=== PATIENT | male | born 1970 | race African-American/Black ===

== ENCOUNTER 2021-09-03 14:15 | Inpatient (IN) | payer OTHER ==
[2021-09-03] MEDS ORDERED: ONDANSETRON *ODT* 4 MG TABLET SL PRN (15:12)
[2021-09-03] MEDS ORDERED: NICOTINE 10 MG CARTRIDGE (INHALER) IH PRN (15:12)
[2021-09-03] MEDS ORDERED: LOPERAMIDE HCL 2 MG CAPSULE PO PRN (15:12)
[2021-09-03] MEDS ORDERED: BISMUTH SUBSALICYLATE 524 MG/30 ML PO PRN (15:12)
[2021-09-03] MEDS ORDERED: MAGNESIUM HYDROX 2400MG/30ML ORAL SUSPENSION 30 ML CUP PO PRN (15:12)
[2021-09-03] MEDS ORDERED: IBUPROFEN 400 MG TABLET (FP) PO PRN (15:12)
[2021-09-03] MEDS ORDERED: ACETAMINOPHEN 325 MG TABLET (FP) PO PRN ×2 (15:12)
[2021-09-03] MEDS ORDERED: MENTHOL/PHENOL 1 EACH UD MM PRN (15:12)
[2021-09-03] MEDS ORDERED: MAG HYDROX/AL HYDROX/SIMETH 30 ML UNIT-DOSE CUP PO PRN (15:12)
[2021-09-03] MEDS ORDERED: MAGNESIUM CITRATE 300 ML BOTTLE PO PRN (15:12)
[2021-09-03 15:54] VITALS: BMI 32.5
[2021-09-03] MEDS: BACITRACIN 0.9 GM PACKET TP SCH (18:34)
[2021-09-03] MEDS: hydrOXYzine PAMOATE 25 MG CAPSULE (FP) PO SCH ×2 (18:34→22:39)
[2021-09-03] MEDS ORDERED: MELATONIN 5 MG TABLETS PO SCH (22:00)
[2021-09-03] MEDS ORDERED: THIAMINE HCL 100 MG TABLET (FP) PO SCH (22:00)
[2021-09-03] MEDS: METHOCARBAMOL 500 MG TABLET PO PRN (22:39)
[2021-09-04] MEDS: hydrOXYzine PAMOATE 25 MG CAPSULE (FP) PO SCH ×3 (05:49→14:27)
[2021-09-04] MEDS ORDERED: PRENATAL VITAMINS W/ FOLIC ACID TABLET (FP) PO SCH (10:00)
[2021-09-04] MEDS: BACITRACIN 0.9 GM PACKET TP SCH (10:48)
[2021-09-04] MEDS: METHOCARBAMOL 500 MG TABLET PO PRN (10:48)
[2021-09-04 13:06] VITALS: BP 119/70; PULSE 80; TEMP 98.1
== END 2021-09-04 15:15 | disposition other institution (70) | DRG 774 ==
LOC: YASAS 14:15 → UNDOADMIN 16:53 → Y6N 16:53
PROVIDERS: ADMIT Allergy & Immunology; ATTEND Allergy & Immunology
PROC: HZ2ZZZZ Detoxification Services for Substance Abuse Treatment (ICD-10-PCS; principal; 2021-09-03)
DX: F10.230 Alcohol dependence with withdrawal, uncomplicated (principal); F14.20 Cocaine dependence, uncomplicated; F17.210 Nicotine dependence, cigarettes, uncomplicated; M17.0 Bilateral primary osteoarthritis of knee; Z59.00 Homelessness unspecified
CPT/HCPCS: 93005; 93010; C9803; U0003; U0005

== ENCOUNTER 2021-09-04 15:03 | Inpatient (IN) | payer OTHER ==
[~2021-09-04 15:03] MED LIST: ACETAMINOPHEN 325 MG TABLET (FP) PO PRN; LOPERAMIDE HCL 2 MG CAPSULE PO PRN; MAG HYDROX/AL HYDROX/SIMETH 30 ML UNIT-DOSE CUP PO PRN; MAGNESIUM CITRATE 300 ML BOTTLE PO PRN; MAGNESIUM HYDROX 2400MG/30ML ORAL SUSPENSION 30 ML CUP PO PRN; NICOTINE 10 MG CARTRIDGE (INHALER) IH PRN; P-EPHED 60MG/TRIPROLIDI 2.5MG TABLET PO PRN; guaiFENesin 200 MG/10 ML 10 ML UNIT-DOSE CUPS PO PRN
[2021-09-04] MEDS: hydrOXYzine PAMOATE 25 MG CAPSULE (FP) PO SCH ×2 (20:57→21:20)
[2021-09-04 21:10] LABS: PH,URINE 7.5 (5.0-8.0); URINE APPEARANCE CLEAR; URINE BILIRUBIN NEGATIVE (NEGATIVE); URINE COLOR YELLOW; URINE GLUCOSE (UA) NEGATIVE (NEGATIVE); URINE KETONE NEGATIVE (NEGATIVE); URINE LEUK ESTERASE NEGATIVE (NEGATIVE); URINE NITRITE NEGATIVE (NEGATIVE); URINE PROTEIN NEGATIVE (NEGATIVE)
[2021-09-04] MEDS: THIAMINE HCL 100 MG TABLET (FP) PO SCH (21:20)
[2021-09-04] MEDS: BACITRACIN 0.9 GM PACKET TP SCH (21:20)
[2021-09-04] MEDS: MELATONIN 5 MG TABLETS PO SCH (21:20)
[2021-09-05] MEDS: hydrOXYzine PAMOATE 25 MG CAPSULE (FP) PO SCH ×5 (06:46→21:05)
[2021-09-05] MEDS: PRENATAL VITAMINS W/ FOLIC ACID TABLET (FP) PO SCH (10:14)
[2021-09-05] MEDS: BACITRACIN 0.9 GM PACKET TP SCH ×2 (10:15→21:05)
[2021-09-05] MEDS: NICOTINE 7 MG/24 HOURS TOPICAL PATCH TD SCH (10:15)
[2021-09-05 11:59] LABS: HEMATOCRIT 43.4 % (35.4-49); HEMOGLOBIN 13.4 GM/dL (11.7-16.9); MCH 21.2 pg (25.7-33.7); MCHC 30.9 g/dl (32.0-35.9); MEAN CELL VOLUME 68.7 fl (80-96); MEAN PLT VOLUME 9.5 fl (7.5-11.1); PLATELET COUNT 325 10^3/uL (134-434); RBC 6.31 M/mm3 (4.00-5.60); RDW 16.8 % (11.9-15.9); WHITE BLOOD COUNT 6.4 K/mm3 (4.0-10.0)
[2021-09-05 12:15] LABS: CALCIUM 8.7 mg/dL (8.5-10.1)
[2021-09-05 12:16] LABS: BLOOD UREA NITROGEN 10.1 mg/dL (7-18)
[2021-09-05 12:17] LABS: CREATININE 1.1 mg/dL (0.55-1.3)
[2021-09-05 12:19] LABS: BILIRUBIN,TOTAL 0.3 mg/dL (0.2-1)
[2021-09-05 12:22] LABS: TOT PROT 6.2 g/dl (6.4-8.2)
[2021-09-05] MEDS: THIAMINE HCL 100 MG TABLET (FP) PO SCH (21:05)
[2021-09-05] MEDS: MELATONIN 5 MG TABLETS PO SCH (21:05)
[2021-09-05] MEDS: IBUPROFEN 400 MG TABLET (FP) PO PRN (21:06)
[2021-09-06] MEDS: hydrOXYzine PAMOATE 25 MG CAPSULE (FP) PO SCH ×5 (06:43→22:01)
[2021-09-06] MEDS: BACITRACIN 0.9 GM PACKET TP SCH ×2 (10:17→21:59)
[2021-09-06] MEDS: PRENATAL VITAMINS W/ FOLIC ACID TABLET (FP) PO SCH (10:17)
[2021-09-06] MEDS: NICOTINE 7 MG/24 HOURS TOPICAL PATCH TD SCH (10:17)
[2021-09-06] MEDS: MELATONIN 5 MG TABLETS PO SCH (22:00)
[2021-09-06] MEDS: IBUPROFEN 400 MG TABLET (FP) PO PRN (22:01)
[2021-09-06] MEDS: THIAMINE HCL 100 MG TABLET (FP) PO SCH (22:01)
[2021-09-07] MEDS: hydrOXYzine PAMOATE 25 MG CAPSULE (FP) PO SCH ×5 (06:30→21:19)
[2021-09-07] MEDS: PRENATAL VITAMINS W/ FOLIC ACID TABLET (FP) PO SCH (09:45)
[2021-09-07] MEDS: BACITRACIN 0.9 GM PACKET TP SCH ×2 (09:45→21:19)
[2021-09-07] MEDS: NICOTINE 7 MG/24 HOURS TOPICAL PATCH TD SCH (09:46)
[2021-09-07] MEDS: MELATONIN 5 MG TABLETS PO SCH (21:19)
[2021-09-07] MEDS: THIAMINE HCL 100 MG TABLET (FP) PO SCH (21:19)
[2021-09-08] MEDS: hydrOXYzine PAMOATE 25 MG CAPSULE (FP) PO SCH ×5 (06:21→21:49)
[2021-09-08] MEDS: BACITRACIN 0.9 GM PACKET TP SCH ×2 (10:08→21:49)
[2021-09-08] MEDS: PRENATAL VITAMINS W/ FOLIC ACID TABLET (FP) PO SCH (10:08)
[2021-09-08] MEDS: NICOTINE 7 MG/24 HOURS TOPICAL PATCH TD SCH (10:08)
[2021-09-08] MEDS: MELATONIN 5 MG TABLETS PO SCH (21:49)
[2021-09-08] MEDS: IBUPROFEN 400 MG TABLET (FP) PO PRN (21:49)
[2021-09-08] MEDS: THIAMINE HCL 100 MG TABLET (FP) PO SCH (21:49)
[2021-09-09] MEDS: hydrOXYzine PAMOATE 25 MG CAPSULE (FP) PO SCH ×5 (06:25→21:12)
[2021-09-09] MEDS: BACITRACIN 0.9 GM PACKET TP SCH ×2 (10:37→21:12)
[2021-09-09] MEDS: PRENATAL VITAMINS W/ FOLIC ACID TABLET (FP) PO SCH (10:37)
[2021-09-09] MEDS: NICOTINE 7 MG/24 HOURS TOPICAL PATCH TD SCH (10:37)
[2021-09-09] MEDS: THIAMINE HCL 100 MG TABLET (FP) PO SCH (21:12)
[2021-09-09] MEDS: MELATONIN 5 MG TABLETS PO SCH (21:12)
[2021-09-09] MEDS: IBUPROFEN 400 MG TABLET (FP) PO PRN (21:13)
[2021-09-10] MEDS: hydrOXYzine PAMOATE 25 MG CAPSULE (FP) PO SCH ×2 (06:44→09:48)
[2021-09-10] MEDS: BACITRACIN 0.9 GM PACKET TP SCH ×2 (09:48→21:26)
[2021-09-10] MEDS: PRENATAL VITAMINS W/ FOLIC ACID TABLET (FP) PO SCH (09:48)
[2021-09-10] MEDS: NICOTINE 7 MG/24 HOURS TOPICAL PATCH TD SCH (09:48)
[2021-09-10] MEDS: IBUPROFEN 400 MG TABLET (FP) PO PRN (10:42)
[2021-09-10] MEDS ORDERED: hydrOXYzine PAMOATE 25 MG CAPSULE (FP) PO PRN (11:30)
[2021-09-10] MEDS: MELATONIN 5 MG TABLETS PO SCH (21:26)
[2021-09-10] MEDS: THIAMINE HCL 100 MG TABLET (FP) PO SCH (21:26)
[2021-09-11] MEDS: BACITRACIN 0.9 GM PACKET TP SCH ×2 (10:08→22:06)
[2021-09-11] MEDS: NICOTINE 7 MG/24 HOURS TOPICAL PATCH TD SCH (10:08)
[2021-09-11] MEDS: PRENATAL VITAMINS W/ FOLIC ACID TABLET (FP) PO SCH (10:08)
[2021-09-11 14:08] LABS: SARS-CoV-2 NAA Not Detected (Not Detected)
[2021-09-11] MEDS: MELATONIN 5 MG TABLETS PO SCH (22:07)
[2021-09-11] MEDS: THIAMINE HCL 100 MG TABLET (FP) PO SCH (22:07)
[2021-09-11] MEDS: IBUPROFEN 400 MG TABLET (FP) PO PRN (22:23)
[2021-09-12] MEDS: BACITRACIN 0.9 GM PACKET TP SCH ×2 (10:16→21:13)
[2021-09-12] MEDS: PRENATAL VITAMINS W/ FOLIC ACID TABLET (FP) PO SCH (10:16)
[2021-09-12] MEDS: NICOTINE 7 MG/24 HOURS TOPICAL PATCH TD SCH (10:17)
[2021-09-12] MEDS: IBUPROFEN 400 MG TABLET (FP) PO PRN ×2 (10:18→21:15)
[2021-09-12] MEDS: MINERAL OIL/PETROLAT/WATER TOPICAL CREAM 113 GM JAR TP SCH ×2 (10:53→21:14)
[2021-09-12] MEDS: THIAMINE HCL 100 MG TABLET (FP) PO SCH (21:13)
[2021-09-12] MEDS: MELATONIN 5 MG TABLETS PO SCH (21:13)
[2021-09-13] MEDS: IBUPROFEN 400 MG TABLET (FP) PO PRN (05:56)
[2021-09-13] MEDS: PRENATAL VITAMINS W/ FOLIC ACID TABLET (FP) PO SCH (10:31)
[2021-09-13] MEDS: BACITRACIN 0.9 GM PACKET TP SCH ×2 (10:48→21:40)
[2021-09-13] MEDS: NICOTINE 7 MG/24 HOURS TOPICAL PATCH TD SCH (10:49)
[2021-09-13] MEDS: MINERAL OIL/PETROLAT/WATER TOPICAL CREAM 113 GM JAR TP SCH ×2 (10:49→21:40)
[2021-09-13] MEDS: MELATONIN 5 MG TABLETS PO SCH (21:40)
[2021-09-13] MEDS: THIAMINE HCL 100 MG TABLET (FP) PO SCH (21:40)
[2021-09-14] MEDS: NICOTINE 7 MG/24 HOURS TOPICAL PATCH TD SCH (10:08)
[2021-09-14] MEDS: MINERAL OIL/PETROLAT/WATER TOPICAL CREAM 113 GM JAR TP SCH ×2 (10:08→21:18)
[2021-09-14] MEDS: PRENATAL VITAMINS W/ FOLIC ACID TABLET (FP) PO SCH (10:08)
[2021-09-14] MEDS: BACITRACIN 0.9 GM PACKET TP SCH ×2 (10:08→21:18)
[2021-09-14] MEDS: IBUPROFEN 400 MG TABLET (FP) PO PRN (21:18)
[2021-09-14] MEDS: MELATONIN 5 MG TABLETS PO SCH (21:18)
[2021-09-14] MEDS: THIAMINE HCL 100 MG TABLET (FP) PO SCH (21:18)
[2021-09-15 06:45] VITALS: BP 111/74; PULSE 84; TEMP 98.1
[2021-09-15] MEDS: NICOTINE 7 MG/24 HOURS TOPICAL PATCH TD SCH (10:20)
[2021-09-15] MEDS: BACITRACIN 0.9 GM PACKET TP SCH (10:20)
[2021-09-15] MEDS: PRENATAL VITAMINS W/ FOLIC ACID TABLET (FP) PO SCH (10:20)
[2021-09-15] MEDS: MINERAL OIL/PETROLAT/WATER TOPICAL CREAM 113 GM JAR TP SCH (10:20)
== END 2021-09-15 11:17 | disposition home or self-care (01) | DRG 772 ==
LOC: YASAS 15:03 → Y3W 15:05
PROVIDERS: ADMIT Allergy & Immunology; ATTEND Allergy & Immunology
PROC: HZ42ZZZ Group Counseling for Substance Abuse Treatment, Cognitive-Behavioral (ICD-10-PCS; principal; 2021-09-04)
DX: F10.20 Alcohol dependence, uncomplicated (principal); F14.20 Cocaine dependence, uncomplicated; F12.20 Cannabis dependence, uncomplicated; F17.210 Nicotine dependence, cigarettes, uncomplicated; F31.9 Bipolar disorder, unspecified; F19.24 Other psychoactive substance dependence with psychoactive substance-induced mood disorder; M17.0 Bilateral primary osteoarthritis of knee; N63.0 Unspecified lump in unspecified breast
CPT/HCPCS: 36415; 71046-TC-FY; 80053; 81003; 82962; 85027; 86780; C9803; U0003; U0005